=== PATIENT | male | born 1985 | race Caucasian/White ===

== ENCOUNTER 2021-07-14 20:53 | Emergency (ER) | payer SELFPAY ==
[~2021-07-14] VITALS: Ht 165.1 cm; Wt 74.8 kg
[2021-07-14 21:11] VITALS: BP 104/72
--- NOTE | 2021-07-14 21:16 | NUR ---
PT TAKEN TO LOBBY.
--- NOTE | 2021-07-14 22:44 | NUR ---
PT TAKEN TO BED 11.
--- NOTE | 2021-07-14 23:02 | NUR ---
PATIENT ELOPED FROM FACILITY. DISCHARGE INSTRUCTIONS NOT GIVEN TO PATIENT. DR. CASTILLO NOTIFIED.
== END 2021-07-14 23:02 | disposition left against medical advice (07) ==
LOC: MED 20:53
DX: S09.90XA Unspecified injury of head, initial encounter (principal); F10.129 Alcohol abuse with intoxication, unspecified; W18.39XA Other fall on same level, initial encounter; Y92.89 Other specified places as the place of occurrence of the external cause; Y93.89 Activity, other specified; Y99.8 Other external cause status
CPT/HCPCS: 70450; 99284

== ENCOUNTER 2022-06-25 10:33 | Emergency (ER) | payer SELFPAY ==
[~2022-06-25] VITALS: Ht 165.1 cm; Wt 81.6 kg
[2022-06-25 10:38] VITALS: BP 136/99
--- NOTE | 2022-06-25 10:44 | NUR ---
WC TO BED 7
--- NOTE | 2022-06-25 11:00 | NUR ---
37YO MALE PT BIB FRIEND C/O ACHING R LOWER LEG PAIN X2DAYS. REPORTS POSSIBLE R ANKLE DISLOCATION WHILE PLAYING BASKETBALL AND HAVING FRIEND " POP IT BACK IN PLACE". LOWER LEG NON PITTING SWELLING W/ POSTERIOR BRUISING NOTED. CAP REFILL <3 THROUGHOUT. PT ABLE TO BEAR WEIGHT , CURRENTLY AMB USING CRUTCHES. DENIES TAKING MEDICATION, NUMBING OR LOSS OF SENSATION. PT AAOX4, SKIN DRY AND FLUSHED. HX: ALCOHOLISM NKA
--- NOTE | 2022-06-25 11:08 | NUR ---
XRAY AT BEDSIDE
--- NOTE | 2022-06-25 11:11 | NUR ---
MD RAO AT BEDSIDE FOR EVALUATION
--- NOTE | 2022-06-25 11:50 | NUR ---
Delmy johsnon in ED - 06/25/22 at 1216 by CINDY short leg posterior splint applied with 4 ". trina wrap x 3. + cms after application.
--- NOTE | 2022-06-25 12:16 | NUR ---
per eduard saha, rubiop splint 4 " applied to r lower extremity. short leg posterior splint applied with 4 ". trina wrap x 4. + cms after application.
--- NOTE | 2022-06-25 12:31 | NUR ---
XRAY AT BEDSIDE
[2022-06-25] MEDS ORDERED: IBUP-1842 PO (12:37)
--- NOTE | 2022-06-25 13:00 | NUR ---
pt discharged home per Dr Bond request, has splint right leg, n/c intact, pt already instructed proper crutches use, explained he needs to keep his weight off his affected leg, kept walking without his crutches, then proper use when leaving ER. No ac distress, ambulatory and steady gait. pt to follow up w pmd in 2 days, denies any further questions.
[2022-06-25 13:01] VITALS: BP 144/85
== END 2022-06-25 13:00 | disposition home or self-care (01) ==
LOC: MED 10:33
DX: S82.64XA Nondisplaced fracture of lateral malleolus of right fibula, initial encounter for closed fracture (principal); X58.XXXA Exposure to other specified factors, initial encounter; Y93.89 Activity, other specified; Y92.89 Other specified places as the place of occurrence of the external cause; Y99.8 Other external cause status
CPT/HCPCS: 29515; 73610; 99283